=== PATIENT | female | born 1985 | race Caucasian/White ===

== ENCOUNTER 2024-06-05 20:42 | Inpatient (IN) | payer BC, SELFPAY ==
[2024-06-05] VITALS (20 sets, daily range): BP systolic 125–170; BP diastolic 62–97; PULSE 73–92; RESP 18; TEMP 37.1; O2SAT 96; BMI 38.5
[2024-06-05] MEDS: Labetalol 100 MG Tablet PO (20:04)
--- NOTE | 2024-06-05 20:09 | PCM.HP.OB ---
HPI - General General Date of Admission: 06/05/24 HPI Narrative SURINDER ZALDIVAR, is a 39 F who presents at 38w6d for induction of labor due to chronic hypertension. PFSH PFSH Home Medications ?Medication ?Instructions ?Recorded ?Last Taken ?Type aspirin 81 mg capsule 81 mg PO DAILY pre-e prevention 06/05/24 06/04/24 20:00 History 81 mg famotidine 20 mg tablet (Acid 20 mg PO DAILY acid reflux 06/05/24 06/05/24 08:11 History Controller) 20 mg labetalol 100 mg tablet 100 mg PO BID CHTN 06/05/24 06/05/24 20:05 History 100 mg vit no.95-ferrous 1 tab PO DAILY 06/05/24 06/04/24 20:09 History fumarate 28 mg-folic acid 800 mcg 1 TAB tablet () Allergy/AdvReac Type Severity Reaction Status Date / Time No Known Allergies Allergy Verified 06/05/24 19:56 NST FHR Rate Baby A Baseline: 150 Variability:: Moderate Accelerations:: 15 x 15 Decelerations:: None FHR Category:: Category I Uterine Activity:: Irregular Vital Signs Vital Signs Vital Signs: 06/05/24 19:31 06/05/24 19:31 06/05/24 19:49 Pulse Rate 92 Blood Pressure 157/85 H 170/95 H BP Systolic 157 170 BP Diastolic 85 95 06/05/24 19:49 06/05/24 20:04 06/05/24 20:04 Pulse Rate 91 83 Blood Pressure 165/93 H BP Systolic 165 BP Diastolic 93 Weight Weight: 231 lb 4 oz Body Mass Index (BMI) 38.5 Physical Exam Const alert and oriented x3 General Appearance: cooperative Orientation / Consciousness: awake, oriented to person, oriented to place and oriented to time Exam Limitations: no limitations HEENT normocephalic Head and Scalp: normal to inspection, normocephalic and atraumatic Face and Sinus: normal facial exam Eyes General Eye: normal appearance of both eyes Neck full ROM Chest Chest: symmetrical chest wall rise Resp normal respiratory effort and normal air movement Auscultation: clear to auscultation bilaterally Cardio regular rate, regular rhythm, S1 normal heart sound, S2 normal heart sound, no murmurs, no rub, no gallops and no clicks GI normal to inspection, nondistended, normoactive bowel sounds and non-tender appearance of the vagina normal Bladder / Kidney Exam: no CVA tenderness Back/Spine normal ROM Extremity normal to inspection and full ROM Skin no rashes or lesions noted Neuro oriented x3, CN's II-XII intact bilaterally and moves all extremities Sensorium / Orientation: awake, alert and oriented to person Motor Exam: clonus absent Deep Tendon Reflexes: Rt Patellar (L4): 2+ and Lt Patellar (L4): 2+ Labs Labs Labs: Hct 32.1 % (37-47) L Hgb 10.9 g/dL (12.0-15.0) L GBS positive O Positive RPR negative Rubella Immune HBsAG negative HepC negative HIV negative GC/CT negative Assessment & Plan (1) 38 weeks gestation of : (2) Chronic hypertension: (3) Positive GBS test: (4) Advanced maternal age during : (5) Obesity affecting : COMMENT: Pregravid BMI 34 PLAN: Plan 1) Admit to labor and delivery 2) Routine labs 3) Preeclampsia labs 4) PO cytotec for cervical ripening. 5) Pain management upon request 6) Hypertensive protocol Procardia 10mg PO x 1. Exacerbation of CHTN, asymptomatic at this time. Monitor for signs and symptoms of preeclampsia. Will initiate magnesium if indicated. 7) collaborative physician and notified of patient status, above assessment and plan.
[2024-06-05 20:17] LABS: Hematocrit 32.1 % (37-47); Hemoglobin 10.9 g/dL (12.0-15.0); Mean Corpuscular Hgb 31.1 pg (27.0-32.0); Mean Corpuscular Volume 91.5 fL (81-99); Mean Platelet Vol. 9.8 fl (6.2-12.0); Platelet Count 259 K/mm3 (150-450); RBC Distribution Width CV 13.2 % (11.6-14.6); RBC Distribution Width SD 43.4 fl (35.1-43.9); Red Blood Count 3.51 M/mm3 (4.2-5.4); White Blood Count 11.9 K/mm3 (4.4-11.0)
[2024-06-05] MEDS: NIFEdipine 10 MG Capsule PO (20:38)
[2024-06-05 20:40] LABS: AST(SGOT) 21 U/L (15-37); Alanine Aminotransfer ALT/SGPT 17 U/L (13-56); Creatinine, Serum 0.65 mg/dL (0.55-1.02); EST Glomerular Filtration Rate 109 mL/min (>60); Est Glom Filt Rate - Afr Amer 132 mL/min (>60); Estimated Creatinine Clearance 141.09 ml/min; Uric Acid 3.9 mg/dL (2.6-6.0)
[2024-06-05 21:06] LABS: Protein:Creat Ratio 277 mg/g CRE (0-200)
[2024-06-05] MEDS: NIFEdipine 30 MG Tablet PO (21:51)
[2024-06-05] MEDS: miSOPROStol 25 MCG TABLET PO (22:08)
[2024-06-06] VITALS (80 sets, daily range): BP systolic 100–175; BP diastolic 53–95; PULSE 69–97; RESP 15–18; TEMP 36.4–37.3; O2SAT 93–99
[2024-06-06] MEDS: miSOPROStol 25 MCG TABLET PO (02:18)
[2024-06-06 03:11] LABS: Syphilis Antibodies Non-reactive
--- NOTE | 2024-06-06 03:49 | PCM.PN.BLA ---
Progress Note Metz placed over stylette in usual sterile fashion and inflated to 30 cc. Placement over internal cervical os confirmed. Fetus and patient tolerated procedure well.
[2024-06-06] MEDS: 0.9% Normal Saline Single 100 ML IV.SOLN. INTRA-UTER ×2 (03:53→21:27)
[2024-06-06] MEDS: Penicillin G Pot 5,000,000 UNITS in 0.9% Normal Saline (100mL MB+) 100 ML 150 UNITS IV (05:31)
[2024-06-06] MEDS: Lactated Ringers 1,000 ML 200 ML IV (05:31)
[2024-06-06] MEDS: Oxytocin 15 Units/NS 250ml 15 UNITS/250 ML IV.SOLN 2 UNITS IV (08:25)
[2024-06-06] MEDS: Labetalol 100 MG Tablet PO ×2 (08:26→21:52)
[2024-06-06] MEDS: 0.9% Saline Lock 10 ML Syringe IV (08:27)
--- NOTE | 2024-06-06 10:30 | PN.OBGYN_ITS ---
Subjective Subjective VTX on bedside US. Cat I tracing. Intact Objective Data Objective Data Vital Signs: Vital Signs Temp Pulse Resp BP Pulse Ox 99.1 F 70 16 135/74 H 96 06/06/24 09:37 06/06/24 09:38 06/06/24 09:37 06/06/24 09:37 06/06/24 09:38 Weight: 104.893 kg Body Mass Index (BMI) 38.5 Intake & Output: Intake and Output for Last 24 Hours 06/04/24 06/05/24 06/06/24 23:59 23:59 23:59 Intake Total 705.07 / 705.07 Output Total 1750 / 1750 Balance -1044.93 / -1044.93 Lab / Micro Data 06/05/24 20:05 06/05/24 20:05 Labs: Laboratory Results - last 24 hr 06/05/24 20:05: WBC 11.9 H, RBC 3.51 L, Hgb 10.9 L, Hct 32.1 L, MCV 91.5, MCH 31.1, MCHC 34.0, RDW Std Deviation 43.4, RDW Coeff of Maninder 13.2, Plt Count 259, MPV 9.8, Creatinine 0.65, Estim Creat Clear Calc 141.09, Est GFR (MDRD) Af Amer 132, Est GFR (MDRD) Non-Af 109, Uric Acid 3.9, AST 21, ALT 17, Syphilis Total Ab Non-reactive, Blood Type O POSITIVE, Antibody Screen NEGATIVE 06/05/24 20:32: U Random Total Protein 33.0 H, Urine Creatinine 119.00, P rotein/Creatinin Ratio 277 H
[2024-06-06] MEDS: Penicillin G 3,000,000 Units 50 ML 100 UNITS IV ×4 (10:32→21:52)
[2024-06-06] MEDS: NIFEdipine 30 MG Tablet PO (16:46)
[2024-06-06] MEDS: Labetalol (Prefilled) 20 MG/4 ML IV (17:21)
[2024-06-06] MEDS: Magnesium Sulfate 4gm/100mL 4 GM/100 ML IV.SOLN. IV (17:58)
[2024-06-06] MEDS: Magnesium Sulfate 20 GM/500 ML BAG IV (18:18)
--- NOTE | 2024-06-06 18:24 | PN.OBGYN_ITS ---
Subjective Subjective Two severe range blood pressures. Treated with IV labetalol. Has already had her PO labetalol and procardia. No Headache. Starting magnesium. Glover came out this am but still 2 cm and very high. Pitocin at max now. Plan to place epidural. If unable to safely AROM will place glover with 60 cc. Cat I tracing. Objective Data Objective Data Vital Signs: Vital Signs Temp Pulse Resp BP Pulse Ox O2 Del Method 98.4 F 76 16 148/80 H 95 Room Air 06/06/24 17:58 06/06/24 18:21 06/06/24 18:15 06/06/24 18:17 06/06/24 18:21 06/06/24 18:15 Oxygen Delivery Method Room Air Weight: 104.893 kg Body Mass Index (BMI) 38.5 Intake & Output: Intake and Output for Last 24 Hours 06/04/24 06/05/24 06/06/24 23:59 23:59 23:59 Intake Total 1618.23 / 1618.23 Output Total 3350 / 3350 Balance -1731.77 / -1731.77 Lab / Micro Data 06/05/24 20:05 06/05/24 20:05 Labs: Laboratory Results - last 24 hr 06/05/24 20:05: WBC 11.9 H, RBC 3.51 L, Hgb 10.9 L, Hct 32.1 L, MCV 91.5, MCH 31.1, MCHC 34.0, RDW Std Deviation 43.4, RDW Coeff of Maninder 13.2, Plt Count 259, MPV 9.8, Creatinine 0.65, Estim Creat Clear Calc 141.09, Est GFR (MDRD) Af Amer 132, Est GFR (MDRD) Non-Af 109, Uric Acid 3.9, AST 21, ALT 17, Syphilis Total Ab Non-reactive, Blood Type O POSITIVE, Antibody Screen NEGATIVE 06/05/24 20:32: U Random Total Protein 33.0 H, Urine Creatinine 119.00, P rotein/Creatinin Ratio 277 H NST FHR Rate Baby A Baseline: 145 Variability:: Moderate Accelerations:: 15 x 15 Decelerations:: None NST Reactive:: Yes FHR Category:: Category I Uterine Activity:: q 2-4 Assessment & Plan (1) Chronic hypertension: (2) 38 weeks gestation of : (3) Encounter for induction of labor: (4) Chronic hypertension with superimposed preeclampsia: PLAN: IV labetalol, magnesium started PLAN: Plan Larger glover vs AROM pending exam after epidural
[2024-06-06] MEDS: LACTATED RINGERS 500 ML 999 ML IV (18:40)
[2024-06-06] MEDS: Famotidine 20 MG Tablet PO (18:52)
[2024-06-06] MEDS: fentaNYL-bupivacaine (epidural) 100 ML BAG EPIDURAL (19:45)
[2024-06-07] VITALS (75 sets, daily range): BP systolic 92–131; BP diastolic 50–82; PULSE 8–97; RESP 14–22; TEMP -12.6–37.4; O2SAT 93–979
--- NOTE | 2024-06-07 | PLAC_PTH ---
PATIENT: SURINDER ZALDIVAR LOC: [facility] U#:[id number] AGE/SX: 39/F ROOM: WP013 RE06/05/[address]: Dr. Radha Adrian MD : [id number] BED: 1 DIS: 06/10/2024 SPEC #: [id number] RECD: 06/07/24 23:26 STATUS: LILLIAN LEONARDO #: [id number] DANIELA: 06/07/24 00:[address]: Radha Adrian DEPT: SURGICAL PATHOLOGY RECD BY: Kuldeep Mendez Tissues: Placenta, NOS Procedures: Surgery Specimen Level V HEADER OPERATION: Primary section PRE-OP DIAGNOSIS: Preeclampsia TISSUE SUBMITTED: Placenta MICROSCOPIC DIAGNOSIS Wooten placenta (503 gm): Umbilical cord - Trivascular with no evidence of inflammation Placental membranes - Mild acute deciduitis Placental disc - Intravillous congestion and mildly increased intraparenchymal microcalcifications AMmr 06/09/2024 MICROSCOPIC DESCRIPTION Slides are reviewed. GROSS DESCRIPTION SPECIMEN: PLACENTA / CLINICAL INFORMATION: A. Weight: 3.118 kg B. Gestational Age: 39 weeks C. Sex: Male PLACENTAL WEIGHT (POST FIXATION): 503 gm PLACENTAL DIMENSIONS: 19.0 x 19.0 x 3.0 cm and is focally disrupted PLACENTAL SHAPE: Usual ovoid PLACENTAL WEIGHT FOR GESTATIONAL AGE: Within 10-99th percentile (over/under percentile) MEMBRANES - Present A. Insertion: Marginal B. Site of rupture from edge: at edge of placental disc C. Color of membrane: Hadley-bradley D. Abnormalities: None UMBILICAL CORD - Present A. Color: Hadley-bradley B. Insertion: Eccentric C. Length: 42.0 cm D. Diameter: 1.5 cm E. Number of vessels: Three F. Abnormalities: None PLACENTAL DISC - Present A. Color of surface: Hadley-bradley B. surface abnormalities: None C. Maternal cotyledons: Intact with minimal tears D. Attached retro placental clot: No clot E. Cut surface: Dark red and spongy F. Lesions: None G. Separate clot: Absent SECTIONS SUBMITTED: (6 cassettes) Dr. Barrera 1. Umbilical cord ( end notched) 2. Umbilical cord, placental end 3. Membrane roll 4. Placental disc, and maternal surfaces 5. Placental disc, and maternal surfaces 6. Placental disc, and maternal surfaces AM/mr 06/08/2024 TC:2 CPT: 85196
[2024-06-07] MEDS: fentaNYL-bupivacaine (epidural) 100 ML BAG EPIDURAL ×4 (00:19→14:19)
[2024-06-07] MEDS: Penicillin G 3,000,000 Units 50 ML 100 UNITS IV ×4 (01:24→13:23)
[2024-06-07] MEDS: Magnesium Sulfate 20 GM/500 ML BAG IV ×3 (03:34→22:51)
[2024-06-07] MEDS: Oxytocin 15 Units/NS 250ml 15 UNITS/250 ML IV.SOLN 14 UNITS IV (03:38)
--- NOTE | 2024-06-07 06:46 | PCM.PN.OB ---
Subjective Subjective AROM for clear fluid. IUPC placed. Pit at 18. Comfortable with epidural Objective Data Objective Data Vital Signs: Vital Signs Temp Pulse Resp BP Pulse Ox O2 Del Method 99.0 F 82 16 113/55 L 96 Room Air 06/07/24 06:32 06/07/24 06:32 06/07/24 06:32 06/07/24 06:32 06/07/24 06:32 06/07/24 06:32 Oxygen Delivery Method Room Air Weight: 104.893 kg Body Mass Index (BMI) 38.5 Intake & Output: Intake and Output for Last 24 Hours 06/05/24 06/06/24 06/07/24 23:59 23:59 23:59 Intake Total 2700.89 / 2700.89 826.69 / 826.69 Output Total 4900 / 4900 700 / 700 Balance -2199.11 / -2199.11 126.69 / 126.69 Lab / Micro Data 06/05/24 20:05 06/05/24 20:05 Physical Exam Narrative 4/60/-3 NST FHR Rate Baby A Baseline: 130 Variability:: Moderate Accelerations:: 15 x 15 Decelerations:: None NST Reactive:: Yes FHR Category:: Category I Uterine Activity:: q 2 Assessment & Plan (1) Chronic hypertension: (2) 38 weeks gestation of : (3) Encounter for induction of labor: (4) Chronic hypertension with superimposed preeclampsia: PLAN: IV labetalol, magnesium started PLAN: Plan AROM and pit
[2024-06-07] MEDS: 0.9% Saline Lock 10 ML Syringe IV ×2 (08:44→19:30)
[2024-06-07] MEDS: Labetalol 100 MG Tablet PO (10:34)
[2024-06-07] MEDS: Famotidine 20 MG Tablet PO (14:50)
[2024-06-07] MEDS: NIFEdipine 30 MG Tablet PO (16:40)
--- NOTE | 2024-06-07 17:05 | PCM.PN.BLA ---
Progress Note Patient remains 4 cm 80% effaced -3 station with moderate caput. There are some cervical edema. There has been no significant cervical dilation or descent in the past 12 hours[address] is in place. Induction of labor has been going on for close to 40 hours now. I discussed with the patient risk benefits and alternatives to proceeding with primary section, patient desires to proceed with section at this time. She declines continuing induction.
[2024-06-07] MEDS: Cefazolin 2 GM in 0.9% Normal Saline (100mL Bag) 100 ML IV (17:23)
[2024-06-07] MEDS: Azithromycin 500 MG in Dextrose 5%-Water (250mL Bag) 250 ML 250 MG IV (17:31)
[2024-06-07] MEDS: Carboprost Tromethamine 250 MCG/ML Ampul IM (17:56)
--- NOTE | 2024-06-07 18:25 | EX.PCM.OBRPT ---
Assessment & Plan (1) Failed induction: (2) Chronic hypertension with superimposed preeclampsia: (3) Obesity affecting : COMMENT: Pregravid BMI 34 (4) Advanced maternal age during : (5) Positive GBS test: (6) delivery delivered: (7) Single live : (8) 39 weeks gestation of : Maternal Data Information Final DEANGELO: 06/13/24 Gestational age: 39 1/7 Details Operative Information Date of Procedure: 06/07/24 Pre-Operative Diagnosis: failed induction Post-Operative Diagnosis: same Classification: LEMUEL Procedure Type: low transverse retort feeder ground bone #1: Gilberto Golden retort feeder ground bone #2: Cate Joe MS3 Type of Anesthesia: Epidural Anesthesiologist: Pa Brennan Antibiotic Given: Ancef 2 grams IV x1 and Zithromax 500 mg/5 mL X1 Drain: Metz to straight drain Estimated Blood Loss: 800 Fluids Replaced: 1000 Procedure Start Time: 17:42 Procedure Stop Time: 18:21 Time of Delivery: 17:45 Findings Description of Procedure: The patient was taken to the operating room. She was prepped and draped in the dorsal supine position with a leftward tilt. A Pfannenstiel skin incision was made approximately 2 cm above the symphysis pubis and carried through to underlying layer fascia with the scalpel. The fascia was incised incised in the midline and extended laterally with the Hanson scissors. The fascia was dissected off the rectus muscles with blunt and sharp dissection. The rectus muscles were in the midline and the peritoneum was entered bluntly. The peritoneal incision was stretched and the bladder blade was placed. The uterine incision was made in a low transverse fashion with the scalpel and extended superiorly and inferiorly with blunt dissection. The amniotic membranes were ruptured bluntly and clear amniotic fluid returned. The infant's head was brought to the incision in the flexed position and delivered without difficulty. The remainder of the was delivered with gentle traction and fundal pressure in the standard fashion. The mouth and nares were bulb suctioned. The cord was clamped and cut as the infant was stimulated. Cord clamping was delayed. The was handed off to the waiting nursing staff. The placenta was delivered with fundal massage and gentle traction in the standard fashion. The uterus was exteriorized and cleared of all clots and debris. . The uterine incision was closed with #1 Vicryl in a running locked fashion. A second layer of the same suture was used in an imbricating fashion. A single 0 Vicryl [id number] was needed in the left corner of the incision through a bleeding sinus to obtain hemostasis. The incision was examined and was found to be hemostatic. The uterus was placed back into the peritoneal cavity and hemostasis was again confirmed. Some Rachid was placed over the uterine incision. The rectus muscles were examined and any bleeding was Bovie cauterized. The parietal peritoneum and rectus muscles were closed en bloc with an 0 Vicryl running suture. Some Rachid muscle was placed over the rectus muscles. The rectus fascia was examined and any bleeding was Bovie cauterized and the rectus fascia was closed with #1 PDS suture in a running standard fashion. The subcutaneous tissue was examining and any bleeding was Bovie cauterized. Some Rachid was placed in the subcutaneous tissue. The subcutaneous tissue was reapproximated with 3-0 Vicryl suture. The skin was closed in a subcuticular fashion with 3-0 Monocryl suture. I performed the entire procedure with assistance. All sponge, lap, and needle counts were correct. The patient was taken to her room for recovery in a stable condition. Presentation: Positive for Vertex Amniotic Membrane Rupture Type: Artificial Amniotic Fluid Description: Clear Placental Delivery Description: Expressed Placenta Disposition: Sent to Pathology Cord Vessel Description: 3 Vessels Cord Entanglement: None A Gender: Male (1 minute): 8 (5 minute): 8 Delayed Cord Clamping: Yes Complications Complications: none Admit VTE Documentation VTE Present on Admission: No VTE Mechan Device Prophylaxis: SCD's VTE Pharm Prophylaxis Ordered: Yes
[2024-06-07] MEDS: Oxytocin 15 Units/NS 250ml 15 UNITS/250 ML IV.SOLN 83 UNITS IV (18:55)
[2024-06-07] MEDS: Loperamide 2 MG Capsule PO (19:09)
[2024-06-07] MEDS: Ketorolac 30 MG/ML Syringe IV (19:30)
[2024-06-07] MEDS: Acetaminophen 500 MG Tablet 1000 MG PO (20:43)
--- NOTE | 2024-06-07 21:13 | NURSING ---
2017 BGT result was NOT for the mother (Yumikoprachi Ramirez). that result was for the baby boy yumiko ramirez. quantros filled out for incorrect scanning of patient wristband.
[2024-06-07 23:29] LABS: Pathology Specimen OB SEE PATHOLOGY REPORT
[2024-06-08] VITALS (35 sets, daily range): BP systolic 96–146; BP diastolic 53–80; PULSE 70–92; RESP 16–18; TEMP 36–36.8; O2SAT 95–99
--- NOTE | 2024-06-08 01:12 | NURSING ---
epidural cath removed. blue tip intact.
[2024-06-08] MEDS: Lactated Ringers 1,000 ML 100 ML IV (01:54)
[2024-06-08] MEDS: Ketorolac 30 MG/ML Syringe IV ×3 (01:54→13:34)
[2024-06-08] MEDS: Acetaminophen 500 MG Tablet 1000 MG PO ×4 (01:54→21:03)
[2024-06-08] MEDS: 0.9% Saline Lock 10 ML Syringe IV ×2 (02:01→13:35)
[2024-06-08] MEDS: Enoxaparin 40 MG/0.4 ML Syringe SC (05:08)
[2024-06-08] MEDS: FLU VACC 2024-25(6MOS UP)/PF 45 MCG/0.5 ML SYRINGE IM (05:08)
[2024-06-08 05:34] LABS: Hematocrit 28.8 % (37-47); Hemoglobin 9.4 g/dL (12.0-15.0); Mean Corp Hgb Conc 32.6 g/dL (32-36); Mean Corpuscular Hgb 30.4 pg (27.0-32.0); Mean Corpuscular Volume 93.2 fL (81-99); Mean Platelet Vol. 9.8 fl (6.2-12.0); Platelet Count 249 K/mm3 (150-450); RBC Distribution Width CV 13.6 % (11.6-14.6); Red Blood Count 3.09 M/mm3 (4.2-5.4); White Blood Count 20.7 K/mm3 (4.4-11.0)
[2024-06-08] MEDS: Magnesium Sulfate 20 GM/500 ML BAG IV (08:21)
--- NOTE | 2024-06-08 10:29 | PCM.PROGNOTE ---
Subjective Subjective patient seen at bedside, doing well. Patient reports good pain control. lochia mild. denies PISANO, visual changes or RUQ pain. Reports mild lochia. Feels weak. Objective Data Objective Data Vital Signs: Vital Signs Temp Pulse Resp BP Pulse Ox O2 Del Method 97.5 F L 72 16 111/59 L 99 Room Air 06/08/24 07:00 06/08/24 09:12 06/08/24 07:00 06/08/24 09:12 06/08/24 07:00 06/08/24 07:00 Oxygen Delivery Method Room Air Weight: 104.893 kg Body Mass Index (BMI) 38.5 Intake & Output: Intake and Output for Last 24 Hours 06/06/24 06/07/24 06/08/24 23:59 23:59 23:59 Intake Total 2700.89 / 2700.89 4501.00 / 4601.00 1305 / 1305 Output Total 4900 / 4900 3625 / 3700 3175 / 3175 Balance -2199.11 / -2199.11 876.00 / 901.00 -1870 / -1870 Lab / Micro Data 06/08/24 05:17 06/05/24 20:05 Labs: Laboratory Results - last 24 hr 06/07/24 20:18: POC Glucose 48 L 06/08/24 05:17: WBC 20.7 H, RBC 3.09 L, Hgb 9.4 L, Hct 28.8 L, MCV 93.2, MCH 30.4, MCHC 32.6, RDW Std Deviation 46.0 H, RDW Coeff of Maninder 13.6, Plt Count 249, MPV 9.8 Physical Exam Const alert and oriented x3 General Appearance: cooperative HEENT normocephalic Neck General: normal visual inspection GI soft to palpation and non-distended GI Narrative: Fundus firm Extremity normal to inspection and no calf tenderness Skin no rashes or lesions noted Neuro oriented x3 and CN's II-XII intact bilaterally Psych mental status grossly normal Assessment & Plan Assessment/Plan (1) Pre-eclampsia, severe: (2) delivery delivered: (3) Chronic hypertension with superimposed preeclampsia: PLAN: Plan POD#1 , Doing well Routine care pain mgmt monitor VS ambulation Monitor VS- will dc labetalol at this time, continue to monitor BPs- will continue procardia 30xl Magnesium to dc at 24hrs (6pm approx)
[2024-06-08] MEDS: Senna/Docusate Sodium 1 Tablet PO (10:58)
[2024-06-08] MEDS: Famotidine 20 MG Tablet PO (10:59)
[2024-06-08] MEDS: NIFEdipine 30 MG Tablet PO (16:26)
[2024-06-08] MEDS: Ibuprofen 600 MG Tablet PO (19:34)
[2024-06-08] MEDS: Labetalol 100 MG Tablet PO (21:02)
[2024-06-09] VITALS (11 sets, daily range): BP systolic 121–147; BP diastolic 61–74; PULSE 73–88; RESP 14–16; TEMP 36.3–36.8; O2SAT 95–98
[2024-06-09] MEDS: Ibuprofen 600 MG Tablet PO ×4 (00:14→19:44)
[2024-06-09] MEDS: Acetaminophen 500 MG Tablet 1000 MG PO ×4 (03:02→22:20)
[2024-06-09] MEDS: Enoxaparin 40 MG/0.4 ML Syringe SC (05:19)
[2024-06-09] MEDS: Labetalol 100 MG Tablet PO ×2 (10:04→22:20)
[2024-06-09] MEDS: Senna/Docusate Sodium 1 Tablet PO (10:04)
--- NOTE | 2024-06-09 10:36 | PCM.PN.CNM ---
Subjective Subjective Patient seen at bedside. Denies headache, vision changes, SOB or CP. Ambulating and voiding without difficulty. Passing flatus. Lochia decreased. Patient desires discharge home tonight. Objective Data Objective Data Vital Signs: Vital Signs Temp Pulse Resp BP Pulse Ox O2 Del Method 98.0 F 81 16 139/66 H 97 Room Air 06/09/24 08:00 06/09/24 08:00 06/09/24 08:00 06/09/24 08:00 06/09/24 08:00 06/09/24 08:00 Oxygen Delivery Method Room Air Weight: 231 lb 4 oz Body Mass Index (BMI) 38.5 Intake & Output: Intake and Output for Last 24 Hours 06/07/24 06/08/24 06/09/24 23:59 23:59 23:59 Intake Total 4501.00 / 4601.00 5533.33 / 5533.33 Output Total 3625 / 3700 7925 / 7925 Balance 876.00 / 901.00 -2391.67 / -2391.67 Lab / Micro Data Attestation: I reviewed the patient's lab results. 06/08/24 05:17 06/05/24 20:05 ROS Eyes Eyes: Denies blurry vision, spots in vision or tunnel vision ENT HEENT: Denies dizziness or headache(s) Cardiovascular Cardiovascular: Reports systems reviewed and no addt'l complaints, except as documented, dizziness and dyspnea Respiratory/Chest Respiratory/Chest: Reports systems reviewed and no addt'l complaints, except as documented Gastrointestinal Gastrointestinal: Reports systems reviewed and no addt'l complaints, except as documented Genitourinary Genitourinary: Reports systems reviewed and no addt'l complaints, except as documented Neurologic Neurologic: Denies abnormal speech, dizziness, headache(s), syncope or vertigo Psychiatric Psychiatric: Reports systems reviewed and no addt'l complaints, except as documented Physical Exam Const alert and no apparent distress General Appearance: cooperative Orientation / Consciousness: awake, oriented to person and oriented to place Exam Limitations: no limitations HEENT normocephalic Eyes General Eye: normal appearance of both eyes Neck full ROM Chest Chest: symmetrical chest wall rise Resp normal respiratory effort, normal air movement and clear to auscultation bilaterally Auscultation: clear to auscultation bilaterally Cardio regular rate and regular rhythm GI normal to inspection, nondistended, normoactive bowel sounds Uterus Palpation: uterus fundus firm Extremity full ROM and no calf tenderness Skin no rashes or lesions noted Neuro oriented x3 Psych mental status grossly normal and activity/motor behavior normal Assessment & Plan (1) Pre-eclampsia, severe: (2) Single live : (3) delivery delivered: (4) Failed induction: (5) Chronic hypertension with superimposed preeclampsia: (6) Chronic hypertension: PLAN: Plan POD 2 Primary C/S Patient off magnesium sulfate for 24 hours tonight at 1800 No severe range pressures Continue Labetalol 100 mg PO BID and Procardia 30 mg XL QD Pain control support Anticipate discharge home tomorrow if BP remain stable
[2024-06-09] MEDS: NIFEdipine 30 MG Tablet PO (16:20)
[2024-06-10] MEDS: Ibuprofen 600 MG Tablet PO ×3 (01:57→14:36)
[2024-06-10 02:00] VITALS: BP 139/63; PULSE 78; RESP 16; TEMP 36.2
[2024-06-10] MEDS: Acetaminophen 500 MG Tablet 1000 MG PO ×2 (04:20→10:17)
[2024-06-10] MEDS: Enoxaparin 40 MG/0.4 ML Syringe SC (05:29)
[2024-06-10 08:01] VITALS: BP 130/69; PULSE 74
[2024-06-10 08:04] VITALS: BP 130/69; PULSE 97; RESP 16; TEMP 36.2; O2SAT 99
[2024-06-10] MEDS: Senna/Docusate Sodium 1 Tablet PO (10:17)
[2024-06-10] MEDS: Labetalol 100 MG Tablet PO (10:17)
--- NOTE | 2024-06-10 11:29 | PCM.PN.OB ---
Subjective Subjective Doing well per patient and nursing staff. Ambulating and taking PO without difficulty. Voiding and passing flatus. Pain controlled. , services for assistance. Denies headache, visual changes, chest pain, shortness of breath, leg pain or increased bleeding. Lochia normal. Objective Data Objective Data Vital Signs: Vital Signs Temp Pulse Resp BP Pulse Ox O2 Del Method 97.2 F L 97 16 130/69 H 99 Room Air 06/10/24 08:04 06/10/24 08:04 06/10/24 08:04 06/10/24 08:04 06/10/24 08:04 06/10/24 08:04 Oxygen Delivery Method Room Air Weight: 231 lb 4 oz Body Mass Index (BMI) 38.5 Intake & Output: Intake and Output for Last 24 Hours 06/08/24 06/09/24 06/10/24 23:59 23:59 23:59 Intake Total 5533.33 / 5533.33 Output Total 7925 / 7925 Balance -2391.67 / -2391.67 Lab / Micro Data 06/08/24 05:17 06/05/24 20:05 ROS Constitutional Constitutional: Reports systems reviewed and no addt'l complaints, except as documented; Denies headache(s) Eyes Eyes: Denies acute decrease in peripheral vision, blurry vision or change in vision ENT HEENT: Reports systems reviewed and no addt'l complaints, except as documented Cardiovascular Cardiovascular: Denies chest pain or dizziness Respiratory/Chest Respiratory/Chest: Denies cough, dyspnea, dyspnea on exertion, shortness of breath at rest or shortness of breath with exertion Gastrointestinal Gastrointestinal: Denies abdominal pain, diarrhea, nausea or vomiting Genitourinary Genitourinary: Denies abdominal discomfort Musculoskeletal Musculoskeletal: Denies limited range of motion Integumentary Integumentary: Reports systems reviewed and no addt'l complaints, except as documented Neurologic Neurologic: Reports systems reviewed and no addt'l complaints, except as documented Psychiatric Psychiatric: Reports systems reviewed and no addt'l complaints, except as documented Endocrine Endocrinology: Reports systems reviewed and no addt'l complaints, except as documented Hematologic/Lymphatic Hematologic/Lymphatic: Reports systems reviewed and no addt'l complaints, except as documented Allergic/Immunologic Allergic/Immunologic: Reports systems reviewed and no addt'l complaints, except as documented Physical Exam Const alert and oriented x3 General Appearance: cooperative Orientation / Consciousness: awake, oriented to person, oriented to place and oriented to time Exam Limitations: no limitations HEENT normocephalic Head and Scalp: normal to inspection, normocephalic and atraumatic Face and Sinus: normal facial exam Eyes General Eye: normal appearance of both eyes Neck full ROM Chest Chest: symmetrical chest wall rise Resp normal respiratory effort and normal air movement Auscultation: clear to auscultation bilaterally Cardio regular rate, regular rhythm, S1 normal heart sound, S2 normal heart sound, no murmurs, no rub, no gallops and no clicks GI normal to inspection, nondistended, normoactive bowel sounds and non-tender appearance of the vagina normal Bladder / Kidney Exam: no CVA tenderness Back/Spine normal ROM Extremity normal to inspection and full ROM Skin no rashes or lesions noted Neuro oriented x3, CN's II-XII intact bilaterally and moves all extremities Sensorium / Orientation: awake, alert and oriented to person Motor Exam: clonus absent Deep Tendon Reflexes: Rt Patellar (L4): 2+ and Lt Patellar (L4): 2+ Assessment & Plan (1) Pre-eclampsia, severe: (2) delivery delivered: (3) Chronic hypertension with superimposed preeclampsia: PLAN: Plan 1) Routine PP care 2) Vitals stable 3) BP stable, continue Labetaolol 100mg PO BID and Procardia XR 30mg PO once daily 4) Follow up early next week for BP check 5) D/C home
--- NOTE | 2024-06-10 11:53 | PCM.DC.SUM ---
Providers Date of Admission: 06/05/24 Primary Care Physician: HUMBLE PATEL Reason For Visit: C SECTION Diagnosis Discharge Diagnosis (1) Pre-eclampsia, severe: Status: Acute Code(s): O14.10 - Severe pre-eclampsia, unspecified trimester (2) delivery delivered: Status: Acute Code(s): O82 - Encounter for delivery without indication (3) Chronic hypertension with superimposed preeclampsia: Status: Acute Code(s): O11.9 - Pre-existing hypertension with pre-eclampsia, unspecified trimester Plan 1) Routine PP care 2) Vitals stable 3) BP stable, continue Labetaolol 100mg PO BID and Procardia XR 30mg PO once daily 4) Follow up early next week for BP check 5) D/C home Medications at Discharge Home Medications labetalol 100 mg tablet 100 mg PO BID CHTN 06/05/24 vit no.95-ferrous fumarate 28 mg-folic acid 800 mcg tablet () 1 tab PO DAILY 06/05/24 acetaminophen 500 mg tablet 1,000 mg (2 x 500 mg) PO Q6H #0 tabs 06/10/24 ibuprofen 600 mg tablet 600 mg PO Q6H #0 tabs 06/10/24 nifedipine 30 mg tablet,extended release 24 hr 30 mg PO Q24H #30 tabs 06/10/24 Hospital Course Summary of Care Provided Minutes Spent on Discharge: 15 Hospital Course: Presented on 06/05/24 for induction of labor due to chronic hypertension with superimposed preeclampsia. Failed induction of labor and low transverse section on 06/07/24. Discharge on 06/10/24. Weight / BMI Weight Weight: 231 lb 4 oz Body Mass Index (BMI) 38.5 ABG / Lab / Microbiology Data 06/08/24 05:17 06/05/24 20:05 D/C Instructions Discharge Diet: No restrictions May resume sexual activity in: 6 weeks Weight Bearing Status: Full weight bearing Lifting Restricted to (Lbs): 20 Call your doctor if your incision/area has: Continuous Slow Oozing, Sudden Increased Bleeding, Increased Pain/ Swelling, Increased Redness, Foul Smelling Discharge and Swelling at the incision site Call your doctor if you observe: Fever of 101 or Higher, Inability to urinate, Inability to have a bowel movement, Using more than 1 pad per hour, Shortness of breath, Dizziness, Fainting spells, Chest pain, Increased palpitations (irregular heartbeat), Calf discomfort and Uncontrolled pain Suture Line Care: Avoid Pulling/Pushing Remove Dressing in: 1 week Cleanse incision/area with: Keep Dressing Clean & Dry Meaningful Use Info Meaningful Use Meaningful Use Diagnoses (Choose all that apply): None applicable Ischemic Stroke Statin Dosing Therapy Reference: STATIN DOSE THERAPY REFERENCE: * Patients > 75 years receive moderate or high dose statin therapy. * Patients 75 years or YOUNGER should receive HIGH intensity statin dose unless contraindicated. You will be required to document reason for non-treatment if statin daily dose does not meet guidelines. HIGH DOSE STATIN THERAPY DAILY Atorvastatin > than or = to 40 mg Rosuvastatin > than or = to 20 mg Amlodipine + Atorvastatin > than or = to 2.5/40 mg Ezetimibe + Simvastatin 10/80 mg Simvastatin 80mg Discharge Plan Admission Admit Date/Time: 06/05/24 20:42 Primary Reason for Your Visit: section Attending Provider: Radha Adrian Primary Care Provider: HUMBLE PATEL Discharge Orders/Prescriptions Prescriptions: New acetaminophen 500 mg Tablet 1,000 mg PO Q6H Qty: 0 0RF nifedipine 30 mg Tablet Extended Release 24hr 30 mg PO Q24H Qty: 30 0RF ibuprofen 600 mg Tablet 600 mg PO Q6H Qty: 0 0RF Continued labetalol 100 mg tablet 100 mg PO BID Discontinued aspirin 81 mg capsule 81 mg PO DAILY famotidine [Acid Controller] 20 mg tablet 20 mg PO DAILY No Action PNV cmb#95-ferrous fumarate-FA [] 28 mg iron- 800 mcg tablet 1 tab PO DAILY Referrals / Follow Up: HUMBLE PATEL [Other] Disposition Disposition (needs filled in before D/C Order can be placed): Home, Self Care
--- NOTE | 2024-06-10 13:41 | PCM.DC.SUM ---
Providers Date of Admission: 06/05/24 Primary Care Physician: HUMBLE PATEL Reason For Visit: C SECTION Diagnosis Discharge Diagnosis (1) Pre-eclampsia, severe: Status: Acute Code(s): O14.10 - Severe pre-eclampsia, unspecified trimester (2) delivery delivered: Status: Acute Code(s): O82 - Encounter for delivery without indication (3) Chronic hypertension with superimposed preeclampsia: Status: Acute Code(s): O11.9 - Pre-existing hypertension with pre-eclampsia, unspecified trimester Plan 1) Routine PP care 2) Vitals stable 3) BP stable, continue Labetaolol 100mg PO BID and Procardia XR 30mg PO once daily 4) Follow up early next week for BP check 5) D/C home Medications at Discharge Home Medications labetalol 100 mg tablet 100 mg PO BID CHTN 06/05/24 vit no.95-ferrous fumarate 28 mg-folic acid 800 mcg tablet () 1 tab PO DAILY 06/05/24 acetaminophen 500 mg tablet 1,000 mg (2 x 500 mg) PO Q6H #0 tabs 06/10/24 ibuprofen 600 mg tablet 600 mg PO Q6H #0 tabs 06/10/24 nifedipine 30 mg tablet,extended release 24 hr 30 mg PO Q24H #30 tabs 06/10/24 Weight / BMI Weight Weight: 231 lb 4 oz Body Mass Index (BMI) 38.5 ABG / Lab / Microbiology Data 06/08/24 05:17 06/05/24 20:05 D/C Instructions Discharge Diet: No restrictions May resume sexual activity in: 6 weeks Weight Bearing Status: Full weight bearing Lifting Restricted to (Lbs): 20 Call your doctor if your incision/area has: Continuous Slow Oozing, Sudden Increased Bleeding, Increased Pain/ Swelling, Increased Redness, Foul Smelling Discharge and Swelling at the incision site Call your doctor if you observe: Fever of 101 or Higher, Inability to urinate, Inability to have a bowel movement, Using more than 1 pad per hour, Shortness of breath, Dizziness, Fainting spells, Chest pain, Increased palpitations (irregular heartbeat), Calf discomfort and Uncontrolled pain Suture Line Care: Avoid Pulling/Pushing Cleanse incision/area with: Keep Dressing Clean & Dry Meaningful Use Info Ischemic Stroke Statin Dosing Therapy Reference: STATIN DOSE THERAPY REFERENCE: * Patients > 75 years receive moderate or high dose statin therapy. * Patients 75 years or YOUNGER should receive HIGH intensity statin dose unless contraindicated. You will be required to document reason for non-treatment if statin daily dose does not meet guidelines. HIGH DOSE STATIN THERAPY DAILY Atorvastatin > than or = to 40 mg Rosuvastatin > than or = to 20 mg Amlodipine + Atorvastatin > than or = to 2.5/40 mg Ezetimibe + Simvastatin 10/80 mg Simvastatin 80mg Discharge Plan Admission Admit Date/Time: 06/05/24 20:42 Primary Reason for Your Visit: section Attending Provider: Radha Adrian Primary Care Provider: HUMBLE PATEL Discharge Orders/Prescriptions Prescriptions: New acetaminophen 500 mg Tablet 1,000 mg PO Q6H Qty: 0 0RF nifedipine 30 mg Tablet Extended Release 24hr 30 mg PO Q24H Qty: 30 0RF ibuprofen 600 mg Tablet 600 mg PO Q6H Qty: 0 0RF Continued labetalol 100 mg tablet 100 mg PO BID Discontinued aspirin 81 mg capsule 81 mg PO DAILY famotidine [Acid Controller] 20 mg tablet 20 mg PO DAILY No Action PNV cmb#95-ferrous fumarate-FA [] 28 mg iron- 800 mcg tablet 1 tab PO DAILY Referrals / Follow Up: HUMBLE PATEL [Other] Disposition Disposition (needs filled in before D/C Order can be placed): Home, Self Care
[2024-06-10 14:59] VITALS: BP 154/71; PULSE 75; RESP 16; TEMP 36.1
[2024-06-10] MEDS: NIFEdipine 30 MG Tablet PO (15:43)
[2024-06-10 15:51] VITALS: BP 175/82; PULSE 71
[2024-06-10 16:00] VITALS: BP 150/80
== END 2024-06-10 16:06 | disposition home or self-care (01) | DRG 788 ==
PROVIDERS: Advanced Practice Midwife; Admitting Provider Obstetrics & Gynecology; Referring Provider Obstetrics & Gynecology; Visit Provider Obstetrics & Gynecology
DX: O11.4 Pre-existing hypertension with pre-eclampsia, complicating childbirth (principal); O99.214 Obesity complicating childbirth; O61.0 Failed medical induction of labor; O99.824 Streptococcus B carrier state complicating childbirth; Z37.0 Single live birth; Z3A.39 39 weeks gestation of pregnancy; Z79.899 Other long term (current) drug therapy; Z23 Encounter for immunization
CPT/HCPCS: 59025; 59050; 76815; 82565; 82570; 82962; 84156; 84450; 84460; 84550; 85027; 86780; 86850; 86900; 86901; 88307; 90656; 99221; J7120; A4216; G0378; J2405